=== PATIENT | male | born 1995 | race African-American/Black ===

== ENCOUNTER 2016-08-02 09:06 | Emergency (ER) | payer SELFPAY ==
[~2016-08-02] VITALS: Ht 185.4 cm; Wt 100.0 kg
[~2016-08-02 09:06] MED LIST: NOCURR
[2016-08-02] MEDS ORDERED: BISM262O25 PO (09:20)
[2016-08-02] MEDS ORDERED: SODIUM CHLORIDE 0.9% 1,000 ML IV ONE (09:45)
[2016-08-02] MEDS ORDERED: MORPHINE SULFATE 4 MG/ML SYRINGE IVP ONE (09:45)
[2016-08-02] MEDS ORDERED: BARIUM SULFATE 0.1% SUSPENSION 450 ML BOTTLE PO ONE (09:45)
[2016-08-02] MEDS ORDERED: ONDANSETRON HCL 4 MG/2 ML VIAL IVP ONE (09:45)
[2016-08-02] MEDS ORDERED: SODIUM CHLORIDE 0.9% 100 ML ONE (10:02)
[2016-08-02] MEDS ORDERED: IOVERSOL 350 MG/ML 150 ML VIAL ONE (10:02)
[2016-08-02 10:07] LABS: ADD UA MICROSCOPIC YES; APPEARANCE,URINE CLEAR (CLEAR); GLUCOSE, URINE (UA) 100 mg/dL (NEGATIVE); KETONES,URINE NEGATIVE (NEGATIVE); LEUKOCYTE ESTERASE ,URINE NEGATIVE (NEGATIVE); OCCULT BLOOD,URINE NEGATIVE (NEGATIVE); PROTEIN,URINE TRACE (NEGATIVE)
[2016-08-02 10:10] LABS: BASOPHILS % (AUTO) 0.4 % (0.0-2.0); EOSINOPHILS % (AUTO) 3.3 % (1.0-6.0); HEMOGLOBIN 14.2 g/dL (13.5-17.5); LYMPHOCYTES # (AUTO) 1.4 K/uL (1.0-4.8); LYMPHOCYTES % (AUTO) 15.5 % (22.0-44.0); MEAN CORPUSCULAR HEMOGLOBIN 29.2 pg (26.0-34.0); MEAN CORPUSCULAR HGB CONC 33.8 G/dL (31.0-37.0); MEAN CORPUSCULAR VOLUME 87 fL (80-100); MONOCYTES % (AUTO) 10.6 % (2.0-9.0); NEUTROPHILS # (AUTO) 6.3 K/uL (1.8-7.7); NEUTROPHILS % (AUTO) 70.2 % (40.0-70.0); PLATELET COUNT (AUTO) 200 K/uL (150-450); RED BLOOD CELL COUNT(AUTO) 4.85 MIL/uL (4.50-5.90); RED CELL DISTRIBUTION WIDTH 12.8 % (11.5-14.5)
[2016-08-02 10:15] LABS: RBC,URINE 0-2 /HPF (0-2); SQUAMOUS EPITHELIAL CELL,UR Few /LPF (None Seen)
[2016-08-02 10:17] LABS: ANION GAP 7 mmol/L (8-16); CARBON DIOXIDE 26 mmol/L (22-29); CHLORIDE 102 mmol/L (98-107); GLOMERULAR FILTR. RATE CALC > 60 mL/min (>60); POTASSIUM 4.3 mmol/L (3.5-5.1); SODIUM SERUM 135 mmol/L (136-145); UREA NITROGEN, BLOOD 14 mg/dL (7-18)
[2016-08-02 10:23] LABS: ALANINE AMINOTRANSFERASE 45 U/L (12-78); ALBUMIN 4.1 g/dL (3.4-5.0); ASPARTATE AMINOTRANSFERASE 19 U/L (15-37); BILIRUBIN,TOTAL 0.3 mg/dL (0.1-1.0); TOTAL PROTEIN, SERUM 8.4 g/dL (6.4-8.2)
[2016-08-02 11:56] VITALS: BP 136/68
== END 2016-08-02 12:35 | disposition home or self-care (01) ==
LOC: EMS 09:07
DX: R10.84 Generalized abdominal pain (principal); R73.9 Hyperglycemia, unspecified; J45.909 Unspecified asthma, uncomplicated
CPT/HCPCS: 36415; 74177; 80053; 81001; 83690; 85025; 96361; 96374; 96375; 99285; J2270; J2405; J7030; J7050; Q9967; Z7610